=== PATIENT | male | born 1985 ===

== ENCOUNTER 2021-01-05 21:26 | Emergency (ER) | payer OTHER ==
--- OUTSIDE RECORDS SUMMARY | 2021-01-05 21:29 | XMS REPORT | Continuity of Care Document ---
:1985 Author Organization [facility] t Address [address] [place] [address] Care Team Providers Name Role Phone Jax Primary Care Physician Problems This patient has no known problems. Allergies, Adverse Reactions, Alerts This patient has no known allergies or adverse reactions. Social History Social Habit Start Date Stop Date Quantity Comments Source Sex Assigned At [facility] Tobacco use and 2017-02-13 2017-02-[address] [facility] exposure 00:00:00 00:00:00 [facility] Alcohol intake 2017-02-13 2017-02-13 Current [facility] - 00:00:00 00:00:00 non-drinker of [facility] nter alcohol (finding) Smoking Status Start Date Stop Date Source Never smoker [facility] Medications This patient has no known medications. Procedures This patient has no known procedures. Results Test Description Test Time Test Comments Results Result [facility] e Comments CT, BRAIN, WITHOUT 2017-02-13 FINAL REPORT PATIENT CONTRAST 06:49:00 ID: [id number] CT, BRAIN, WITHOUT CONTRAST INDICATION: Headache, positional TECHNIQUE: Noncontrast axial imaging was obtained from the vertex to the skull base. Axial images were reconstructed using a bone algorithm. DOSE REDUCTION: Dose modulation, iterative reconstruction, and/or weight-based adjustment of the mA/kV was utilized to reduce the radiation dose to as low as reasonably achievable. COMPARISON: None. FINDINGS: Cerebral parenchyma: Unremarkable.Midline structures: Normally positioned.Cerebellum and brainstem: Normal.Ventricles: Normal volume.Extra-axial spaces: Unremarkable. Calvarium and skull base: Intact.Paranasal sinuses and mastoid air cells: Polyposis versus retention cyst in the left maxillary sinus.Orbital contents: Included portions unremarkable. Additional findings: None. IMPRESSION: No acute intracranial abnormality. If there is persistent clinical concern for intracranial pathology, MR examination is recommended for further characterization. Signed: JR Mackenzie Robert MDReport Verified Date/Time: 02/13/2017 06:49:47 Reading Location: [facility] B1 C013Y CT Body Reading Room
== END 2021-01-06 00:07 | disposition left against medical advice (07) ==
LOC: ER 21:26
DX: Z02.9 Encounter for administrative examinations, unspecified (principal)